=== PATIENT | male | born 1955 | race Caucasian/White ===

== ENCOUNTER 2020-12-05 05:58 | Day surgery (SDC) | payer OTHER ==
[2020-12-04 13:33] LABS: COVID AG,FIA SOURCE NASOPHARYNGEAL
[~2020-12-05] VITALS: Ht 177.8 cm; Wt 74.5 kg
[2020-12-05] MEDS ORDERED: BENZOCAINE 20% 50 MCG/SPRAY 57 GM TP ONE (05:59)
[2020-12-05] MEDS ORDERED: ALBUTEROL SULFATE 2.5 MG/0.5 ML NEB SOLUTION NEB ONE (05:59)
[2020-12-05] MEDS ORDERED: LIDOCAINE 4% 50 ML SOLUTION TP ONE (05:59)
[2020-12-05] MEDS ORDERED: LIDOCAINE 2% 30 ML JELLY TP ONE (05:59)
[2020-12-05] MEDS ORDERED: SODIUM CHLORIDE 0.9% 1,000 ML ONE (06:09)
[2020-12-05] MEDS ORDERED: SODIUM CHLORIDE 0.9% 1,000 ML IV ONE (06:30)
[2020-12-05] MEDS ORDERED: WARF7.5T7 PO (07:01)
[2020-12-05] MEDS ORDERED: ASPI-1444 PO (07:01)
[2020-12-05] MEDS ORDERED: FentaNYL CITRATE PF 100 MCG/2 ML VIAL ONE (07:23)
[2020-12-05] MEDS ORDERED: MIDAZOLAM HCL 5 MG/ML VIAL ONE (07:24)
[2020-12-05] MEDS ORDERED: MethylPREDNISolone SOD SUCC 125 MG/2 ML VIAL IVP ONE (09:00)
[2020-12-05] MEDS ORDERED: MethylPREDNISolone SOD SUCC 125 MG/2 ML VIAL ONE (09:28)
[2020-12-05] MEDS ORDERED: OXYGEN THERAPY IH SCH (20:00)
== END 2020-12-05 10:13 | disposition home or self-care (01) ==
LOC: SURGERY 05:58
PROVIDERS: ATTEND Internal Medicine Critical Care Medicine
DX: J38.4 Edema of larynx (principal); E78.00 Pure hypercholesterolemia, unspecified; B37.0 Candidal stomatitis; Z72.89 Other problems related to lifestyle; Z79.899 Other long term (current) drug therapy; Z98.890 Other specified postprocedural states
CPT/HCPCS: 31623; 31624; 71045; 87015; 87070; 87101; 87205; 87206; 87220; 87426; 88108; 88184; 88185; 88313; 93005; C9803; J2250; J2930; J3010; J7030; J7613; Z7610